=== PATIENT | female | born 2005 | race Caucasian/White ===

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

== ENCOUNTER 2025-05-16 21:31 | Emergency (ER) | payer OTHER ==
[~2025-05-16] VITALS: Ht 162.6 cm; Wt 81.8 kg
[2025-05-16 22:00] VITALS: BP 144/81; PULSE 97; RESP 16; TEMP 98.4; O2SAT 97
[2025-05-16 23:20] LABS: PLATELET COUNT (AUTO) 334 K/uL (150-450); RED BLOOD CELL COUNT(AUTO) 4.34 MIL/uL (4.00-5.20); RED CELL DISTRIBUTION WIDTH 13.6 % (11.5-14.5); WHITE BLOOD COUNT (AUTO) 16.3 K/uL (4.5-11.0)
[2025-05-16 23:33] LABS: CALCIUM, TOTAL 9.1 mg/dL (8.8-10.5); CREATININE 0.68 mg/dL (0.60-1.30); GLOMERULAR FILTR. RATE CALC > 60 mL/min (>60); GLUCOSE,RANDOM 161 mg/dL (70-110); SODIUM SERUM 141 mmol/L (136-145); UREA NITROGEN, BLOOD 9 mg/dL (7-18)
[2025-05-16 23:37] LABS: ASPARTATE AMINOTRANSFERASE 16 U/L (15-37); TOTAL PROTEIN, SERUM 8.1 g/dL (6.4-8.2)
[2025-05-17] MEDS ORDERED: ONDA-104 PO (01:01)
[2025-05-17] MEDS ORDERED: PANT-31 PO (01:01)
[2025-05-17] MEDS: PANTOPRAZOLE SODIUM 40 MG DR TABLET PO ONE (01:03)
== END 2025-05-17 01:13 | disposition home or self-care (01) ==
LOC: EMS 21:31
DX: K29.70 Gastritis, unspecified, without bleeding (principal); R11.16 Cannabis hyperemesis syndrome; R10.13 Epigastric pain; F41.9 Anxiety disorder, unspecified; F12.90 Cannabis use, unspecified, uncomplicated; Z79.899 Other long term (current) drug therapy
CPT/HCPCS: 74176; 76700; 80053; 83690; 85025; 93005; 99284